=== PATIENT | female | born 1965 | race Hispanic/Latino ===

== ENCOUNTER 2017-06-21 14:08 | Inpatient (IN) | payer OTHER ==
[2017-06-21 15:03] LABS: Basophils % (Auto) 0.4 % (0.0-1.8); Eosinophils % (Auto) 0.1 % (0.0-4.3); Hematocrit 38.3 % (30.3-42.9); Hemoglobin 13.3 gm/dl (10.1-14.3); Lymphocytes # (Auto) 0.2 K/mm3 (1.2-5.4); Lymphocytes % (Auto) 5.7 % (13.4-35.0); Mean Corpuscular HGB Conc 35 % (30-34); Mean Corpuscular Hemoglobin 37 pg (28-32); Mean Corpuscular Volume 106 fl (79-97); Monocytes # (Auto) 0.1 K/mm3 (0.0-0.8); Monocytes % (Auto) 4.1 % (0.0-7.3); Platelet Count 122 K/mm3 (140-440); Red Blood Count 3.61 M/mm3 (3.65-5.03); Red Cell Distribution Width 13.7 % (13.2-15.2)
[2017-06-21 15:16] LABS: BUN/Creatinine Ratio 17; Blood Urea Nitrogen 10 mg/dL (7-17); Calcium 8.7 mg/dL (8.4-10.2); Hemolysis Index 10
[2017-06-21] MEDS ORDERED: MAGNESIUM SULFATE 2GM/50ML 2 GM/50 ML BAG IV ONE (16:09)
[2017-06-21] MEDS ORDERED: K-DUR PO ONE (16:09)
[2017-06-21] MEDS ORDERED: NACL 0.9% 1000 ML 1,000 ML IV ONE (16:09)
--- NOTE | 2017-06-21 16:23 | Emergency Department Report ---
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 She reports that she has a past medical history of hypertension and high cholesterol. The patient presents to the ER with a complaint of syncope. Patient reported that she was eating lunch earlier on today, when she felt her vision began to go cloudy and black. She further reports diaphoresis and feeling weak. She did not have sudden or thunderclap headache, there is no chest pain or shortness of breath. She reports that she is not , there is no leg pain, there is no leg swelling, no DVT or pulmonary embolus risk factors, there is no posterior leg pain, there is no posterior leg swelling. She does not take oral contraceptives. She's had a tetanus vaccination within the past 5 years. There is no midline neck pain. There is a right anterior knee abrasion. There is no weakness, numbness, ataxia. Timing/Prior Episodes: single episode today Precipitating Factors: Positive: blurred vision, confusion Context: activity Loss of Consciousness: brief (seconds) Current Symptoms: back to normal - Related Data Allergies/Adverse Reactions: Allergies diclofenac Allergy (Verified 06/21/17 14:47) Rash hydroxychloroquine [From Plaquenil] Allergy (Verified 06/21/17 14:47) Rash lisinopril Allergy (Verified 06/21/17 14:47) Unknown Home Medications: Ambulatory Orders Nebivolol HCl [Bystolic] 20 mg PO BID 06/21/17 Omeprazole Magnesium [PriLOSEC Otc] 20 mg PO QDAY 06/21/17 amLODIPine [Norvasc] 10 mg PO DAILY 06/21/17 ED Review of Systems ROS: Stated complaint: SYNCOPAL Other details as noted in HPI Comment: All other systems reviewed and negative Constitutional: diaphoresis Respiratory: denies: shortness of breath Cardiovascular: syncope. denies: chest pain Gastrointestinal: denies: abdominal pain Musculoskeletal: as per HPI Skin: rash Neurological: denies: weakness Psychiatric: as per HPI, anxiety ED Past Medical Hx - Social History Smoking Status: Never Smoker - Medications Home Medications: Home Medications Medication Instructions Recorded Confirmed Last Taken Type Nebivolol HCl [Bystolic] 20 mg PO BID 06/21/17 06/21/17 06/20/17 History Omeprazole Magnesium [PriLOSEC Otc] 20 mg PO QDAY 06/21/17 06/21/17 06/20/17 History amLODIPine [Norvasc] 10 mg PO DAILY 06/21/17 06/21/17 06/20/17 History ED Physical Exam - General Limitations: No Limitations General appearance: alert, in no apparent distress - Head Head exam: Present: atraumatic, normocephalic - Eye Eye exam: Present: normal appearance, PERRL, EOMI. Absent: nystagmus - ENT ENT exam: Present: normal exam, normal orophraynx, mucous membranes moist, TM's normal bilaterally, normal external ear exam, other (there is no nasal septal hematoma. There is no hemotympanum. There is left mandibular ecchymosis. There is no trismus, stridor or malocclusion) - Neck Neck exam: Present: normal inspection, full ROM. Absent: tenderness, meningismus - Respiratory Respiratory exam: Present: normal lung sounds bilaterally. Absent: respiratory distress, chest wall tenderness - Cardiovascular Cardiovascular Exam: Present: regular rate, normal rhythm, normal heart sounds. Absent: bradycardia, tachycardia, irregular rhythm, systolic murmur, diastolic murmur, rubs, gallop - GI/Abdominal GI/Abdominal exam: Present: soft, normal bowel sounds. Absent: distended, tenderness, guarding, rebound, rigid, pulsatile mass - Extremities Exam Extremities exam: Present: full ROM, normal capillary refill, other (2+ pulses noted in the bilateral upper and lower extremities. There is a left femoral hematoma. The pelvis is stable. The compartments are soft. There is a right anterior knee abrasion. There is no joint instability. There is no palpable cord. There is negative Homans sign.). Absent: pedal edema, joint swelling, calf tenderness - Back Exam Back exam: Present: normal inspection, full ROM. Absent: paraspinal tenderness , vertebral tenderness - Neurological Exam Neurological exam: Present: alert, oriented X3, CN II-XII intact, other ( Extraocular movements intact. Tongue midline. No facial droop. Facial sensation intact to light touch in the V1, V2, V3 distribution bilaterally. 5 and 5 strength in 4 extremities.. Sensation is intact to light touch in 4 extremities.). Absent: motor sensory deficit - Psychiatric Psychiatric exam: Present: normal affect, normal mood - Skin Skin exam: Present: warm, erythema, ecchymosis ED Course Vital Signs 06/21/17 06/21/17 14:45 14:51 Temperature 98.4 F Pulse Rate 88 Respiratory 17 17 Rate Blood Pressure 144/91 [Left] O2 Sat by Pulse 97 97 Oximetry - Reevaluation(s) Reevaluation #1: 06/21/17 19:17 CT scan of the brain is negative. ED Medical Decision Making - Lab Data Result diagrams: 06/21/17 14:50 06/21/17 14:50 Vital Signs 06/21/17 06/21/17 14:45 14:51 Temperature 98.4 F Pulse Rate 88 Respiratory 17 17 Rate Blood Pressure 144/91 [Left] O2 Sat by Pulse 97 97 Oximetry Labs 06/21/17 06/21/17 06/21/17 14:50 14:50 15:27 WBC 3.5 L RBC 3.61 L Hgb 13.3 Hct 38.3 MCV 106 H MCH 37 H MCHC 35 H RDW 13.7 Plt Count 122 L Lymph % (Auto) 5.7 L [place] % (Auto) 4.1 Eos % (Auto) 0.1 Baso % (Auto) 0.4 Lymph # 0.2 L [place] # 0.1 Eos # 0.0 Baso # 0.0 Seg Neutrophils % 89.7 H Seg Neutrophils # 3.2 Sodium 129 L Potassium 3.1 L Chloride 83.3 L Carbon Dioxide 23 Anion Gap 26 BUN 10 Creatinine 0.6 L Estimated GFR > 60 BUN/Creatinine Ratio 17 Glucose 116 H Calcium 8.7 Magnesium Troponin T < 0.010 Urine Color Yellow Urine Turbidity Clear Urine pH 5.0 Ur Specific [place] 1.020 Urine Protein <15 mg/dl Urine Glucose (UA) Neg Urine Ketones 20 Urine Blood Neg Urine Nitrite Neg Urine Bilirubin Neg Urine Urobilinogen < 2.0 Ur Leukocyte Esterase Neg Urine WBC (Auto) 2.0 Urine RBC (Auto) 2.0 U Epithel Cells (Auto) 8.0 Hyaline Casts 4 Urine Mucus Few 06/21/17 06/21/17 16:11 16:11 WBC RBC Hgb Hct MCV MCH MCHC RDW Plt Count Lymph % (Auto) [place] % (Auto) Eos % (Auto) Baso % (Auto) Lymph # [place] # Eos # Baso # Seg Neutrophils % Seg Neutrophils # Sodium Potassium Chloride Carbon Dioxide Anion Gap BUN Creatinine Estimated GFR BUN/Creatinine Ratio Glucose Calcium Magnesium 1.50 L Troponin T < 0.010 Urine Color Urine Turbidity Urine pH Ur Specific [place] Urine Protein Urine Glucose (UA) Urine Ketones Urine Blood Urine Nitrite Urine Bilirubin Urine Urobilinogen Ur Leukocyte Esterase Urine WBC (Auto) Urine RBC (Auto) U Epithel Cells (Auto) Hyaline Casts Urine Mucus - EKG Data -: EKG Interpreted by Me - EKG Data When compared to previous EKG there are: previous EKG unavailable 06/21/17 18:44 Normal sinus, 76 bpm, normal axis, normal intervals, nonspecific T-wave abnormalities, motion artifact, abnormal EKG, not morphologically consistent with ST elevation myocardial infarction - Radiology Data Radiology results: image reviewed interpreted by me: x-ray the chest is negative. The right lower lung field is obscured secondary to technique. A repeat x-ray has been requested. X-ray of the right knee is negative for acute fracture and dislocation. Noncontrast CT scan of the brain is pending interpretation. - Medical Decision Making Differential diagnosis, including but not limited to: Structural cardiac disease , electrolyte derangement, acute coronary syndrome, arrhythmia, vagal event, orthostasis, dehydration Assessment and plan: 52-year-old female with no pulmonary embolus or DVT risk factors, low risk by well's criteria, nonspecifically abnormal EKG, found to be hyponatremic, hypokalemic, hypomagnesemic, no recent cardiac risk stratification or echocardiogram, will be admitted to the medical service for evaluation of unprovoked syncope. Discussed with cardiology nurse practitioner nutrition tech, Flaco Mcdermott; her group will see the patient in consultation. Patient is clinically sober at this time. The cervical spine is cleared through nexus and [place] c spine rule The case was presents to the Hospital physician, Dr. Adolfo Velez; he accepts the patient to the medical service. Critical care attestation.: If time is entered above; I have spent that time in minutes in the direct care of this critically ill patient, excluding procedure time. ED Disposition Clinical Impression: Syncope and collapse, Hypokalemia, Hyponatremia Disposition: DC-09 OP ADMIT IP TO THIS HOSP Is pt being admited?: Yes Condition: Good Instructions: Syncope (ED) Referrals: PRIMARY CARE,MD [Primary Care Provider] - 3-5 Days
[2017-06-21 16:27] LABS: Bilirubin,Urine NEG (Negative); Blood,Urine NEG (Negative); Color,Urine Yellow (Yellow); Hyaline Casts,Urine 4 /LPF; Mucus,Urine FEW /HPF; Protein,Urine <15 mg/dL mg/dL (Negative); Urobilinogen,Urine < 2.0 mg/dL (<2.0)
[2017-06-21] MEDS ORDERED: KCL 10MEQ/100ML 10 MEQ/100 ML BAG IV SCH (17:00)
[2017-06-21] MEDS ORDERED: KCL 40 MEQ in NACL 0.9% 500 ML 500 ML IV ONE (17:00)
--- NOTE | 2017-06-21 18:52 | Cat Scan Report ---
FINAL REPORT EXAM: CT HEAD/BRAIN WO CON HISTORY: syncop TECHNIQUE: CT head without contrast PRIORS: None. FINDINGS: No acute intra-axial or extra-axial hemorrhage is identified. There is no evidence of midline shift or mass effect. The ventricles and sulci are within normal limits. Viveros-white matter differentiation is intact. No acute parenchymal abnormalities seen. Bony calvarium is grossly intact. Visualized portions of the mastoids and paranasal sinuses are unremarkable. IMPRESSION: Negative CT head
--- NOTE | 2017-06-21 19:33 | XRay Report ---
FINAL REPORT EXAM: XR KNEE 1-2V RT HISTORY: right knee pain upt ordered TECHNIQUE: Right knee 2 views PRIORS: None. FINDINGS: No fracture is identified. No dislocation seen. No evidence of joint effusion. Patella demonstrates normal positioning. No acute bony abnormality identified. IMPRESSION: Negative knee series
--- NOTE | 2017-06-21 19:34 | XRay Report ---
FINAL REPORT EXAM: XR CHEST 1V AP HISTORY: syncope upt ordered TECHNIQUE: upright single view chest PRIORS: None. FINDINGS: Cardiac and mediastinal contours are unremarkable. No focal pulmonary infiltrate is identified. No pleural fluid collection seen. Pulmonary vasculature is unremarkable. IMPRESSION: Negative single-view chest
[2017-06-21] MEDS ORDERED: TYLENOL PO PRN (21:45)
[2017-06-21] MEDS ORDERED: ZOFRAN IV PRN (21:46)
[2017-06-21] MEDS ORDERED: NACL 0.9% 1000 ML 1,000 ML IV SCH (22:00)
[2017-06-21] MEDS ORDERED: NON-FORMULARY (Nebivolol Hcl [Bystolic] 20 MG) PO SCH (22:00)
[2017-06-21] MEDS: TOPROL XL PO SCH (23:41)
[2017-06-22 01:44] LABS: Creatine Kinase MB 2.2 ng/mL (0.0-4.0)
[2017-06-22 06:02] LABS: BUN/Creatinine Ratio 12; Blood Urea Nitrogen 7 mg/dL (7-17); Calcium 8.1 mg/dL (8.4-10.2); Hemolysis Index 8
[2017-06-22 06:18] LABS: Creatine Kinase MB 1.7 ng/mL (0.0-4.0)
--- NOTE | 2017-06-22 08:55 | History and Physical Report ---
CHIEF COMPLAINT: Syncopal attack. HISTORY OF PRESENTING ILLNESS: The patient is a 52-year-old female who says she was sitting down ____ cloudy and she passed off, she also noted that when this was happening, she became diaphoretic and felt weak, but denied history of chest pain, denied history of shortness of breath and denied history of any fever or chills and then the patient passed off. The patient denies history of ingestion of alcohol prior to passing out and did not know how long she was out. There was no history of shaking or jerking of the body. The patient's past medical history is pertinent for elevated cholesterol and also the patient has past history of high blood pressure. PAST SURGICAL HISTORY: Not well known. FAMILY HISTORY: Noncontributory. SOCIAL HISTORY: The patient does not smoke, does not drink alcohol or does not use illicit drugs. MEDICATIONS: The patient is on Bystolic, on nebivelol 20 mg by mouth twice daily, Prilosec OTC 20 mg by mouth daily, Norvasc 10 mg by mouth daily. ALLERGIES: THE PATIENT IS ALLERGIC TO DICLOFENAC, HYDROXYCHLOROQUINE, and LISINOPRIL. REVIEW OF SYSTEMS: CONSTITUTIONAL: There is no fever, no chills. Diaphoresis present. HEENT: There is no headache or sore throat. CARDIOVASCULAR: There is no chest pain or orthopnea. RESPIRATORY: There is no shortness of breath or cough. GASTROINTESTINAL: There is no nausea, no vomiting, no abdominal pain, diarrhea or constipation. NEUROLOGICAL: Visual impairment, also there was weakness and the syncopal attack. MUSCULOSKELETAL: There is no joint pain or swelling. DERMATOLOGICAL: There is no skin rash or itching. GENITOURINARY: There is no dysuria, hematuria, or flank pain. Rest of system review is normal. PHYSICAL EXAMINATION: GENERAL: At the time of exam, the patient was found to be alert, oriented x 3, not in acute distress. VITAL SIGNS: Shows temperature of 92.2 degree Fahrenheit, pulse of 90, blood pressure of 137/83, O2 sat of 97-98% on room air. HEENT: Pupils to be equal, round, reactive to light and accommodation. Extraocular muscles are intact. NECK: Supple with no JVD or carotid bruit. CARDIOVASCULAR: Showed normal first and second heart sounds with no gallops or murmurs. RESPIRATORY: Show good air entry on both sides of the lung with no abnormal breath sounds. GASTROINTESTINAL: Show abdomen to be full, soft, nontender with no organomegaly or rigidity. NEUROLOGICAL: Shows no focal deficit. MUSCULOSKELETAL: Show no joint swelling or tenderness. DERMATOLOGICAL: Show no skin rash. GENITOURINARY: Showing no costovertebral angle tenderness. PERTINENT LABORATORY AND IMAGING STUDIES: IMAGING STUDIES: The patient had CBC done that shows normal hemoglobin, normal hematocrit with low WBC of 3.5. CBC differential shows elevated neutrophil count of 89.7. The patient's chemistry showed low sodium of 129, low potassium of 3.4, low magnesium of 1.5, and low chloride of 83.3 with an unremarkable renal function. The patient's troponin level came back unremarkable. Urinalysis was unremarkable. DIAGNOSES: 1. Syncopal attack. 2. Electrolyte imbalance with low potassium, low magnesium and low sodium. PLAN: The patient will be admitted to medical floor on telemetry and will have complete echocardiogram done this morning. The patient will continue with Cardiology consult with Dr. Isabel Muhammad, ordered by the Emergency Room doctor, Dr. Cameron. The patient will have bilateral carotid Doppler done this morning, and to be on IV normal saline at 125 mL an hour. The patient will also be on IV Zofran 4 mg every 8 hours for nausea and vomiting and Tylenol 650 mg by mouth every 4 hours. The patient will have basic metabolic panel and magnesium level checked this morning to monitor the electrolytes and will have cardiac enzymes involving troponin, total CK, CK-MB checked q. 6 hours x 2 more levels. DVT prophylaxis through sequential compressive device and the patient will be on home medication as shown in the medication reconciliation section. JOB# [id number] OCN/NTS
[2017-06-22] MEDS: TOPROL XL PO SCH ×2 (09:08→22:11)
[2017-06-22] MEDS: NORVASC PO SCH (09:09)
[2017-06-22] MEDS: PROTONIX PO SCH (09:09)
--- NOTE | 2017-06-22 09:39 | Progress Note ---
Assessment and Plan - Syncope Normal Carotid doppler and CT head F/u withECHO report - Hypokalemia Corrected - Hypomagnesemia Corrected - Hyponatremia Corrected - Hypertension on oral antihypertensiove DVT PPx with lovenox disposition d/c home in am if ECHO is normal Subjective Date of service: 06/22/17 Principal diagnosis: syncope with possible seizure Interval history: Pt seen and examined. no new complaint. no more syncope Objective - Constitutional Vitals: Vital Signs - 12hr 06/21/17 06/21/17 06/22/17 22:30 23:41 00:32 Temperature 99.2 F Pulse Rate 84 90 91 H Pulse Rate [ Right Radial] Respiratory 18 Rate Blood Pressure 137/83 Blood Pressure 137/83 [Left] O2 Sat by Pulse 97 Oximetry 06/22/17 06/22/17 03:30 05:10 Temperature 98.9 F Pulse Rate 82 Pulse Rate [ 75 Right Radial] Respiratory 18 18 Rate Blood Pressure Blood Pressure 133/83 [Left] O2 Sat by Pulse 98 Oximetry General appearance: Present: no acute distress, well-nourished - EENT Eyes: PERRL, EOM intact Ears: bilateral: normal - Neck Neck: supple, normal ROM - Respiratory Respiratory effort: normal Respiratory: bilateral: CTA - Cardiovascular Rhythm: regular Heart Sounds: Present: S1 & S2. Absent: gallop, rub Extremities: pulses intact, No edema, Full ROM Extremity abnormal: erythema - Gastrointestinal General gastrointestinal: Present: soft, non-tender, non-distended, normal bowel sounds, other (colostomy bad and a G- tube in place) - Integumentary Integumentary: clear, warm, dry - Musculoskeletal Musculoskeletal: 1, strength equal bilaterally - Neurologic Neurologic: moves all extremities - Psychiatric Psychiatric: memory intact, appropriate mood/affect, intact judgment & insight - Labs CBC & Chem 7: 06/21/17 14:50 06/22/17 05:15 Labs: Abnormal lab results 06/21/17 06/21/17 06/21/17 Range/Units 14:50 14:50 16:11 WBC 3.5 L (4.5-11.0) K/mm3 RBC 3.61 L (3.65-5.03) M/mm3 MCV 106 H (79-97) fl MCH 37 H (28-32) pg MCHC 35 H (30-34) % Plt Count 122 L (140-440) K/mm3 Lymph % (Auto) 5.7 L (13.4-35.0) % Lymph # 0.2 L (1.2-5.4) K/mm3 Seg Neutrophils % 89.7 H (40.0-70.0) % Sodium 129 L (137-145) mmol/L Potassium 3.1 L (3.6-5.0) mmol/L Chloride 83.3 L (98-107) mmol/L Creatinine 0.6 L (0.7-1.2) mg/dL Glucose 116 H (65-100) mg/dL Calcium (8.4-10.2) mg/dL Magnesium 1.50 L (1.7-2.3) mg/dL Total Creatine Kinase (30-135) units/L 06/22/17 06/22/17 06/22/17 Range/Units 00:39 05:15 05:15 WBC (4.5-11.0) K/mm3 RBC (3.65-5.03) M/mm3 MCV (79-97) fl MCH (28-32) pg MCHC (30-34) % Plt Count (140-440) K/mm3 Lymph % (Auto) (13.4-35.0) % Lymph # (1.2-5.4) K/mm3 Seg Neutrophils % (40.0-70.0) % Sodium (137-145) mmol/L Potassium (3.6-5.0) mmol/L Chloride (98-107) mmol/L Creatinine 0.6 L (0.7-1.2) mg/dL Glucose (65-100) mg/dL Calcium 8.1 L (8.4-10.2) mg/dL Magnesium (1.7-2.3) mg/dL Total Creatine Kinase 190 H 164 H (30-135) units/L
[2017-06-22] MEDS ORDERED: NON-FORMULARY (Omeprazole Magnesium [Prilosec Otc] 20 MG) PO SCH (10:00)
--- NOTE | 2017-06-22 10:44 | Consultation ---
History of Present Illness Consult date: 06/22/17 Consult reason: syncope History of present illness: This is a 52yr old woman with a history of hypertension, who is admitted with syncope. A cardiology consultation was requested for evaluation. Patient reports diaphoresis and dizziness just prior to passing out. She denies chest pain, shortness of breath and palpitations. Head CT scan is negative. 12 lead ECG is benign. Her latest cardiac workup was done in 2013. At that time, she had a negative treadmill stress test and a normal LVEF on echcocardiogram. Medications and Allergies Allergies Allergy/AdvReac Type Severity Reaction Status Date / Time diclofenac Allergy Rash Verified 06/21/17 14:47 hydroxychloroquine Allergy Rash Verified 06/21/17 14:47 [From Plaquenil] lisinopril Allergy Unknown Verified 06/21/17 14:47 Home Medications Medication Instructions Recorded Confirmed Last Taken Type Nebivolol HCl [Bystolic] 20 mg PO BID 06/21/17 06/21/17 06/20/17 History Omeprazole Magnesium [PriLOSEC Otc] 20 mg PO QDAY 06/21/17 06/21/17 06/20/17 History amLODIPine [Norvasc] 10 mg PO DAILY 06/21/17 06/21/17 06/20/17 History Active Meds: Active Medications Acetaminophen (Tylenol) 650 mg PO Q4H PRN PRN Reason: For Pain/Fever/Headache Amlodipine Besylate (Norvasc) 10 mg PO DAILY [facility] Last Admin: 06/22/17 09:09 Dose: 10 mg Sodium Chloride (Nacl 0.9% 1000 Ml) 1,000 mls @ 125 mls/hr IV DIRECT [facility] Last Admin: 06/21/17 23:33 Dose: 125 mls/hr Metoprolol Succinate (Toprol Xl) 200 mg PO BID [facility] Last Admin: 06/22/17 09:08 Dose: 200 mg Ondansetron HCl (Zofran) 4 mg IV Q8H PRN PRN Reason: Nausea And Vomiting Pantoprazole Sodium (Protonix) 20 mg PO QDAY [facility] Last Admin: 06/22/17 09:09 Dose: 20 mg Physical Examination Vital Signs Pulse Resp 81 19 06/21/17 14:28 06/21/17 14:28 General appearance: no acute distress HEENT: Positive: PERRL Neck: Positive: trachea midline Cardiac: Positive: Reg Rate and Rhythm Lungs: Positive: Decreased Breath Sounds Neuro: Positive: Grossly Intact Extremities: Absent: edema Results 06/21/17 14:50 06/22/17 05:15 Cardiac Enzymes 06/22/17 06/22/17 Range/Units 00:39 05:15 CK-MB (CK-2) 2.2 1.7 (0.0-4.0) ng/mL CBC 06/21/17 Range/Units 14:50 WBC 3.5 L (4.5-11.0) K/mm3 RBC 3.61 L (3.65-5.03) M/mm3 Hgb 13.3 (10.1-14.3) gm/dl Hct 38.3 (30.3-42.9) % Plt Count 122 L (140-440) K/mm3 Lymph # 0.2 L (1.2-5.4) K/mm3 [place] # 0.1 (0.0-0.8) K/mm3 Eos # 0.0 (0.0-0.4) K/mm3 Baso # 0.0 (0.0-0.1) K/mm3 Comprehensive Metabolic Panel 06/21/17 06/22/17 Range/Units 14:50 05:15 Sodium 129 L 140 D (137-145) mmol/L Potassium 3.1 L 3.8 D (3.6-5.0) mmol/L Chloride 83.3 L 101.5 (98-107) mmol/L Carbon Dioxide 23 24 (22-30) mmol/L BUN 10 7 (7-17) mg/dL Creatinine 0.6 L 0.6 L (0.7-1.2) mg/dL Glucose 116 H 90 (65-100) mg/dL Calcium 8.7 8.1 L (8.4-10.2) mg/dL Assessment and Plan Syncope Hyponatremia Hypertension Echocardiogram for LVEF assessment.
[2017-06-22] MEDS ORDERED: KCL 20MEQ/100ML 20 MEQ/100 ML BAG IV SCH (19:00)
[2017-06-22] MEDS: KCL 40 MEQ in NACL 0.9% 500 ML 500 ML IV ONE (21:30)
[2017-06-23 06:24] LABS: Basophils % (Auto) 1.2 % (0.0-1.8); Eosinophils % (Auto) 1.8 % (0.0-4.3); Hematocrit 35.3 % (30.3-42.9); Hemoglobin 11.7 gm/dl (10.1-14.3); Lymphocytes % (Auto) 38.4 % (13.4-35.0); Mean Corpuscular HGB Conc 33 % (30-34); Mean Corpuscular Hemoglobin 36 pg (28-32); Mean Corpuscular Volume 109 fl (79-97); Monocytes # (Auto) 0.4 K/mm3 (0.0-0.8); Monocytes % (Auto) 13.8 % (0.0-7.3); Platelet Count 117 K/mm3 (140-440); Red Blood Count 3.24 M/mm3 (3.65-5.03); Red Cell Distribution Width 13.7 % (13.2-15.2)
[2017-06-23 06:44] LABS: Alanine Aminotransferase 33 units/L (7-56); Albumin 3.7 g/dL (3.9-5); BUN/Creatinine Ratio 10; Blood Urea Nitrogen 6 mg/dL (7-17); Calcium 8.5 mg/dL (8.4-10.2); Hemolysis Index 2
--- NOTE | 2017-06-23 08:49 | Discharge Summary ---
Providers - Providers Date of Admission: 06/21/17 18:46 Date of discharge: 06/23/17 Attending physician: BRANDAN MCGRAW 06/21/17 16:20 Consult to Physician [CONS] Urgent Comment: Consulting Provider: LUNA ROA Physician Instructions: Reason For Exam: syncope Primary care physician: LIGHTHOUSE KEEPER Hospitalization Reason for admission: hypokalemia, hyponatremia, Condition: Good Pertinent studies: Ct head, ECHO, carotid doppler Procedures: none Hospital course: 52-year-old patient with a history of hypertension otherwise healthy. Presented with syncope. She describes a very brief syncope associated with profuse diaphoresis, historically consistent with a vasovagal event. A 12-lead EKG is normal sinus rhythm, normal ECG. Workup here with serial cardiac enzymes was negative. Echocardiogram was normal left ventricular systolic function, ejection fraction 55%, no significant valvular lesions. 2 years ago, she underwent outpatient cardiac workup with stress test and echo both of which were negative. Currently, she looks and feels well, no chest pain, no shortness of breath and no palpitations. She has some ecchymosis on the chin, following her fall at home. X-ray and CT scans in the emergency room were negative, therefore her bruises on the left chin represent only superficial trauma. Had hypokalemia, hypomagnesimia and hyponatremia cindy weer correct. Has Leukopenia of 2.5 which she was advised to f/u with her PCP for further w/u. Advised to f/u with her PCP in 3-5 days Disposition: DC-01 TO HOME OR SELFCARE Time spent for discharge: 35 mins Core Measure Documentation - Palliative Care Palliative Care/ Comfort Measures: Not Applicable - Core Measures Any of the following diagnoses?: none Exam - Constitutional Vitals: Temp Pulse Resp BP Pulse Ox 98.6 F 84 18 145/76 99 06/23/17 05:59 06/23/17 06:00 06/23/17 05:59 06/23/17 05:59 06/23/17 05:59 General appearance: Present: no acute distress, well-nourished - EENT Eyes: Present: PERRL ENT: hearing intact, clear oral mucosa - Neck Neck: Present: supple, normal ROM - Respiratory Respiratory effort: normal Respiratory: bilateral: CTA - Cardiovascular Heart Sounds: Present: S1 & S2. Absent: rub, click - Extremities Extremities: pulses symmetrical, No edema Peripheral Pulses: within normal limits - Abdominal General gastrointestinal: Present: soft, non-tender, non-distended, normal bowel sounds - Integumentary Integumentary: Present: clear, warm, dry - Musculoskeletal Musculoskeletal: gait normal, strength equal bilaterally - Psychiatric Psychiatric: appropriate mood/affect, intact judgment & insight - Neurologic Neurologic: CNII-XII intact, moves all extremities Plan Activity: advance as tolerated, fall precautions Weight Bearing Status: Weight Bear as Tolerated Diet: low cholesterol Follow up with: SHERYL JUÁREZ MD [Staff Physician] - 7 Days PRIMARY CARE, [Primary Care Provider] - 3-5 Days
[2017-06-23 09:05] VITALS: BP 154/91
[2017-06-23] MEDS: TOPROL XL PO SCH (09:34)
[2017-06-23] MEDS: NORVASC PO SCH (09:34)
[2017-06-23] MEDS: PROTONIX PO SCH (09:34)
--- NOTE | 2017-06-23 09:49 | Progress Note ---
Assessment and Plan Syncope, vasovagal normal LVEF on echocardiogram Hyponatremia Hypertension Recommendations: Patient is stable for cardiac discharge, no further workup for vasovagal syncope. 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 Subjective Date of service: 06/23/17 Principal diagnosis: syncope with possible seizure Interval history: Patient has no complaints. No cardiac events on telemetry monitoring overnight. Objective Vital Signs Temp Pulse Resp BP BP Pulse Ox 06/23/17 08:02 97.7 F 66 18 154/91 99 06/23/17 06:00 84 06/23/17 05:59 98.6 F 67 18 145/76 99 06/23/17 05:05 62 98 06/23/17 01:10 70 99 06/23/17 01:09 98.4 F 74 20 156/91 98 06/22/17 22:11 73 125/82 06/22/17 22:00 74 18 06/22/17 20:53 98.5 F 73 20 125/82 98 06/22/17 20:24 111 H 99 06/22/17 20:19 71 98 06/22/17 17:04 80 0 L 116/76 100 - Physical Examination General: No Apparent Distress HEENT: Positive: PERRL Neck: Positive: trachea midline Cardiac: Positive: Reg Rate and Rhythm Lungs: Positive: Decreased Breath Sounds Neuro: Positive: Grossly Intact Extremities: Absent: edema - Labs and Meds Cardiac Enzymes 06/23/17 Range/Units 05:27 AST 54 H (5-40) units/L CBC 06/23/17 Range/Units 05:27 WBC 2.7 L (4.5-11.0) K/mm3 RBC 3.24 L (3.65-5.03) M/mm3 Hgb 11.7 (10.1-14.3) gm/dl Hct 35.3 (30.3-42.9) % Plt Count 117 L (140-440) K/mm3 Lymph # 1.0 L (1.2-5.4) K/mm3 Hitchcock # 0.4 (0.0-0.8) K/mm3 Eos # 0.0 (0.0-0.4) K/mm3 Baso # 0.0 (0.0-0.1) K/mm3 Comprehensive Metabolic Panel 06/23/17 Range/Units 05:27 Sodium 141 (137-145) mmol/L Potassium 4.2 (3.6-5.0) mmol/L Chloride 102.6 (98-107) mmol/L Carbon Dioxide 25 (22-30) mmol/L BUN 6 L (7-17) mg/dL Creatinine 0.6 L (0.7-1.2) mg/dL Glucose 98 (65-100) mg/dL Calcium 8.5 (8.4-10.2) mg/dL AST 54 H (5-40) units/L ALT 33 (7-56) units/L Alkaline Phosphatase 67 (35-129) units/L Total Protein 6.1 L (6.3-8.2) g/dL Albumin 3.7 L (3.9-5) g/dL
== END 2017-06-23 13:55 | disposition home or self-care (01) | DRG 312 ==
LOC: ED 14:08 → 4A 18:46
PROVIDERS: ADMIT Internal Medicine; ATTEND Family Medicine
DX: R55 Syncope and collapse (principal); E87.1 Hypo-osmolality and hyponatremia; E87.6 Hypokalemia; Z88.8 Allergy status to other drugs, medicaments and biological substances; I10 Essential (primary) hypertension; E78.00 Pure hypercholesterolemia, unspecified; E83.42 Hypomagnesemia; S00.83XA Contusion of other part of head, initial encounter; W19.XXXA Unspecified fall, initial encounter; Y93.89 Activity, other specified; Y92.009 Unspecified place in unspecified non-institutional (private) residence as the place of occurrence of the external cause
CPT/HCPCS: 36415; 70450; 71045; 80048; 80053; 81001; 82550; 82553; 82607; 83735; 84100; 84484; 85025; 93005; 93010; 93306; 93880; 96365; 96375; J3475; J3480; J7030; J7040